=== PATIENT | female | born 2005 | race American Indian/Alaskan Native ===

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

== ENCOUNTER 2025-04-23 17:40 | Emergency (ER) | payer MEDICAID ==
[2025-04-23] MEDS ORDERED: Sodium Chloride 0.9% 10 ML Syringe FLUSH PRN (18:14)
[2025-04-23 18:17] VITALS: BP 135/87; PULSE 76
[2025-04-23 18:28] LABS: BASOPHILS PERCENT AUTO 0.3 % (0.0-1.0); EOSINOPHILS PERCENT AUTO 0.3 % (1.0-3.0); HEMATOCRIT 40.3 % (37.0-47.0); HEMOGLOBIN 13.7 g/dL (12.0-16.0); LYMPHOCYTES PERCENT AUTO 25.1 % (20.5-50.1); MEAN CORPUSCULAR VOLUME 88.2 fL (80-100); NEUTROPHILS PERCENT AUTO 68.3 % (42.2-75.2); PLATELET COUNT,PLT 295 10^3/uL (150-450); RED BLOOD CELL COUNT 4.57 10^6/uL (4.2-5.4); WHITE BLOOD CELL COUNT,WBC 11.8 10^3/uL (5.0-10.0)
[2025-04-23] MEDS: Lactated Ringers 1,000 ML IV STA (18:35)
[2025-04-23 18:56] LABS: A/G RATIO 1.3; ALANINE AMINOTRANSFERASE,ALT 16 U/L (14-59); ALBUMIN 4.4 g/dL (3.4-5.0); ALKALINE PHOSPHATASE 78 U/L (46-116); ANION GAP 13.7 mEq/L (7-13); ASPARTATE AMNIOTRANSFERASE,AST 18 U/L (15-37); BILIRUBIN TOTAL 0.4 mg/dL (0.2-1.0); BLOOD UREA NITROGEN,BUN 9 mg/dL (7-18); CARBON DIOXIDE,CO2 28 mmol/L (21-32); CHLORIDE,CL 101 mmol/L (98-107); CREATININE 0.75 mg/dL (0.55-1.02); EST CRCL DRUG DOSING (CG) 103.15 mL/min; ESTIMATED GFR 118 mL/min (>=60); GLUCOSE RANDOM 109 mg/dL (70-99); HCG QUALITATIVE,SERUM NEGATIVE (NEGATIVE); MAGNESIUM 1.9 mg/dL (1.8-2.4); PERCENT FE SATURATION 19.8 % (20.0-50.0); POTASSIUM,K 3.7 mmol/L (3.5-5.1); PROTEIN TOTAL,TP 7.9 g/dL (6.4-8.2); SODIUM,NA 139 mmol/L (136-145); T4 FREE 0.97 ng/dL (0.76-1.46)
== END 2025-04-23 21:32 | disposition home or self-care (01) ==
LOC: DL.ED 17:40
DX: R42 Dizziness and giddiness (principal); R11.2 Nausea with vomiting, unspecified
CPT/HCPCS: 36415; 80053; 83540; 83550; 83735; 84439; 84443; 84703; 85025; 93005; 93010; 96360; 99284; 99285; J7120